=== PATIENT | female | born 1970 | race Two or more races ===

== ENCOUNTER 2024-10-11 07:30 | Inpatient (IN) | payer BC ==
[~2024-10-11] VITALS: Ht 154.9 cm; Wt 61.7 kg
[2024-10-11] MEDS ORDERED: MAGNESIUM HYDROXIDE 30 ML LIQUID UDC ONE (08:27)
[2024-10-11] MEDS: MAGNESIUM HYDROXIDE 30 ML LIQUID UDC PO ONE (08:29)
[2024-10-11 08:38] LABS: BASOPHILS # (AUTO) 0.1 K/UL (0.0-0.2); BASOPHILS % (AUTO) 0.3 % (0.0-2.0); HEMOGLOBIN 13.2 g/dL (10.9-14.3); LYMPHOCYTES # (AUTO) 0.7 K/uL (0.8-4.8); LYMPHOCYTES % (AUTO) 3.5 % (20.5-51.5); MEAN CORPUSCULAR HEMOGLOBIN 31.7 uug (24.7-32.8); MEAN CORPUSCULAR HGB CONC 35 g/dL (32.3-35.6); MEAN CORPUSCULAR VOLUME 90.9 fL (75.5-95.3); MONOCYTES % (AUTO) 4.8 % (0.0-11.0); NEUTROPHILS % (AUTO) 91.4 % (38.5-71.5); PLATELET COUNT (AUTO) 289 K/uL (179-408); RED BLOOD CELL COUNT(AUTO) 4.18 MIL/uL (3.63-4.92); RED CELL DISTRIBUTION WIDTH 12.4 % (12.3-17.7); WHITE BLOOD COUNT (AUTO) 20.8 K/uL (3.8-11.8)
[2024-10-11 08:40] LABS: DIFFERENTIAL COMMENT 1
[2024-10-11] MEDS ORDERED: MINERAL OIL FLEET ENEMA 133 ML BOTTLE RC ONE (08:46)
[2024-10-11 08:48] LABS: CALCIUM 9.6 mg/dL (8.5-10.1); CREATININE 1.1 mg/dL (0.6-1.3); POTASSIUM 4.1 mmol/L (3.5-5.1)
[2024-10-11 08:53] LABS: ALBUMIN 4.2 g/dL (3.4-5.0); BILIRUBIN,DIRECT 0.2 mg/dL (0.0-0.2); BILIRUBIN,TOTAL 0.9 mg/dL (0.2-1.0); TOTAL PROTEIN, SERUM 7.9 g/dL (6.4-8.2)
[2024-10-11] MEDS: MINERAL OIL FLEET ENEMA 133 ML BOTTLE RC ONE (09:20)
[2024-10-11] MEDS: IV NORMAL SALINE 1000 ML BAG IV ONE (09:58)
[2024-10-11] MEDS: IV NS 1000 ML 1,000 ML IV ONE (11:11)
[2024-10-11] MEDS ORDERED: MAGNESIUM SULFATE/D5W 300 ML ONE (11:43)
[2024-10-11] MEDS: MAGNESIUM SULFATE/D5W 100 ML IV SCH (11:57)
[2024-10-11 13:44] LABS: *BILIRUBIN,URIN NEGATIVE (NEGATIVE); *BLOOD, URINE 1+ (NEGATIVE); *CLARITY,URINE CLEAR (CLEAR); *COLOR,URINE YELLOW (YELLOW); *KETONES,URINE NEGATIVE (NEGATIVE); *PROTEIN,URINE TRACE (NEGATIVE); *UROBILINOGEN,URINE 0.2 E.U./dl (NORMAL); LEUKOCYTE ESTERASE ,URINE NEGATIVE (NEGATIVE); NITRITE, URINE NEGATIVE (NEGATIVE); UGLUCOSE NEGATIVE (NEGATIVE)
[2024-10-11 13:45] LABS: BACTERIA,URINE FEW /HPF (NONE SEEN); SQUAMOUS EPITHELIAL CELL,UR FEW /HPF (NONE SEEN); WBC,URINE 0-3 /HPF (0-3)
[2024-10-11] MEDS ORDERED: METRONIDAZOLE 500 MG/NS 100ML 100 ML IV ONE (14:53)
[2024-10-11] MEDS: METRONIDAZOLE 500 MG/NS 100 ML PIGGYBACK IV ONE (15:04)
[2024-10-11] MEDS: CIPROFLOXACIN IV 400 MG in PREMIXED 1 EACH IV SCH (16:05)
[2024-10-11] MEDS ORDERED: MAGNESIUM HYDROXIDE 30 ML LIQUID UDC PO PRN (17:45)
[2024-10-11] MEDS ORDERED: ACETAMINOPHEN 325 MG TABLET PO PRN (17:45)
[2024-10-11] MEDS: MAGNESIUM CITRATE 296 ML BOTTLE PO ONE (17:45)
[2024-10-11] MEDS ORDERED: ONDANSETRON 4 MG/2 ML VIAL IV PRN (17:45)
[2024-10-11] MEDS ORDERED: REMEDY ESSENTIAL ZINC PASTE 113 GM TP PRN (17:45)
[2024-10-11] MEDS: levoFLOXacin 500 MG/D5W 500 MG in PREMIXED 1 EACH IV SCH (21:00)
[2024-10-11] MEDS ORDERED: CIPROFLOXACIN IV 200 ML IV ONE (21:52)
[2024-10-11] MEDS: IV NS 1000 ML 1,000 ML IV PRN (21:57)
[2024-10-12 03:59] VITALS: BP 91/55; TEMP 99; O2SAT 97
[2024-10-12 06:44] LABS: BASOPHILS % (AUTO) 0.3 % (0.0-2.0); EOSINOPHILS # (AUTO) 0.3 K/uL (0.0-0.7); EOSINOPHILS % (AUTO) 2.4 % (0.0-7.0); HEMATOCRIT 27.6 % (31.2-41.9); HEMOGLOBIN 9.8 g/dL (10.9-14.3); LYMPHOCYTES # (AUTO) 1.5 K/uL (0.8-4.8); LYMPHOCYTES % (AUTO) 14.6 % (20.5-51.5); MEAN CORPUSCULAR HEMOGLOBIN 32.4 uug (24.7-32.8); MEAN CORPUSCULAR HGB CONC 36 g/dL (32.3-35.6); MEAN CORPUSCULAR VOLUME 91.3 fL (75.5-95.3); MONOCYTES # (AUTO) 0.8 K/uL (0.1-1.30); MONOCYTES % (AUTO) 7.9 % (0.0-11.0); NEUTROPHILS # (AUTO) 7.9 K/uL (1.8-8.9); NEUTROPHILS % (AUTO) 74.8 % (38.5-71.5); PLATELET COUNT (AUTO) 171 K/uL (179-408); RED BLOOD CELL COUNT(AUTO) 3.02 MIL/uL (3.63-4.92); RED CELL DISTRIBUTION WIDTH 12.5 % (12.3-17.7); WHITE BLOOD COUNT (AUTO) 10.6 K/uL (3.8-11.8)
[2024-10-12 06:56] LABS: CALCIUM 8.1 mg/dL (8.5-10.1); CREATININE 0.9 mg/dL (0.6-1.3); MAGNESIUM 2.2 mg/dL (1.8-2.4); PHOSPHOROUS 2.9 mg/dL (2.5-4.9); POTASSIUM 4.2 mmol/L (3.5-5.1)
[2024-10-12 06:57] LABS: DIFFERENTIAL COMMENT 1
[2024-10-12] MEDS ORDERED: NORT10CA PO (07:34)
[2024-10-12] MEDS ORDERED: GUAN1TAB PO (07:34)
[2024-10-12] MEDS ORDERED: GUAN3TAB PO (10:51)
[2024-10-12 11:52] VITALS: BP 93/46; TEMP 98.4; O2SAT 91
[2024-10-12 15:29] VITALS: BP 101/53; TEMP 98.4; O2SAT 99
[2024-10-12] MEDS: HYDROCORTISONE 2.5 % RECTAL CREAM 28.35 GM TUBE RC PRN (18:38)
[2024-10-12 19:30] VITALS: BP 104/60; TEMP 98; O2SAT 100
[2024-10-13] MEDS ORDERED: NORTRIPTYLINE HCL 10 MG CAPSULE PO SCH
[2024-10-13] MEDS ORDERED: INTUNIV 3 MG PO SCH (00:15)
[2024-10-13] MEDS: NORTRIPTYLINE 10 MG PO SCH (00:57)
[2024-10-13] MEDS: [UNRECOGNIZED DRUG - OTHER] PO SCH (00:57)
[2024-10-13] MEDS: GUANFACINE 3 MG PO SCH (00:58)
[2024-10-13] MEDS: [UNRECOGNIZED DRUG - OTHER] PO SCH (00:58)
[2024-10-13 06:00] VITALS: BP 95/59; TEMP 97.2; O2SAT 98
[2024-10-13 06:36] LABS: BASOPHILS % (AUTO) 0.4 % (0.0-2.0); EOSINOPHILS # (AUTO) 0.5 K/uL (0.0-0.7); EOSINOPHILS % (AUTO) 5.8 % (0.0-7.0); HEMATOCRIT 26.2 % (31.2-41.9); HEMOGLOBIN 9.1 g/dL (10.9-14.3); LYMPHOCYTES # (AUTO) 2.3 K/uL (0.8-4.8); LYMPHOCYTES % (AUTO) 27.7 % (20.5-51.5); MEAN CORPUSCULAR HGB CONC 35 g/dL (32.3-35.6); MEAN CORPUSCULAR VOLUME 92.2 fL (75.5-95.3); MONOCYTES # (AUTO) 0.6 K/uL (0.1-1.30); MONOCYTES % (AUTO) 6.6 % (0.0-11.0); NEUTROPHILS % (AUTO) 59.5 % (38.5-71.5); PLATELET COUNT (AUTO) 160 K/uL (179-408); RED BLOOD CELL COUNT(AUTO) 2.84 MIL/uL (3.63-4.92); RED CELL DISTRIBUTION WIDTH 12.5 % (12.3-17.7); WHITE BLOOD COUNT (AUTO) 8.4 K/uL (3.8-11.8)
[2024-10-13 06:48] LABS: DIFFERENTIAL COMMENT 1
[2024-10-13 06:52] LABS: CALCIUM 8.3 mg/dL (8.5-10.1); CREATININE 0.8 mg/dL (0.6-1.3); POTASSIUM 3.6 mmol/L (3.5-5.1)
[2024-10-13 11:14] VITALS: BP 101/62; TEMP 97.6; O2SAT 100
[2024-10-13] MEDS: SIMETHICONE 80 MG TAB.CHEW PO SCH (12:17)
[2024-10-13] MEDS: GOLYTELY 4000 ML BOTTLE PO ONE (14:41)
[2024-10-13] MEDS ORDERED: LEVO500T90 PO (14:57)
[2024-10-13] MEDS ORDERED: SIME80TA15 PO (14:57)
[2024-10-13] MEDS ORDERED: POLY17PO4 PO (14:57)
[2024-10-13] MEDS ORDERED: SENN8.6T19 PO (14:57)
[2024-10-13 15:21] VITALS: BP 101/58; TEMP 98.1; O2SAT 100
[2024-10-13] MEDS ORDERED: levoFLOXacin 500 MG TABLET PO SCH (21:00)
== END 2024-10-13 16:10 | disposition home or self-care (01) | DRG 392 ==
LOC: ER 07:30 → MEDSURG3 20:11
PROVIDERS: ADMIT Internal Medicine; ATTEND Internal Medicine
DX: K52.89 Other specified noninfective gastroenteritis and colitis (principal); A09 Infectious gastroenteritis and colitis, unspecified; E87.20 Acidosis, unspecified; K50.90 Crohn's disease, unspecified, without complications; E86.0 Dehydration; K59.00 Constipation, unspecified; F41.9 Anxiety disorder, unspecified; Z88.0 Allergy status to penicillin; Z88.2 Allergy status to sulfonamides; S82.141D Displaced bicondylar fracture of right tibia, subsequent encounter for closed fracture with routine healing; X58.XXXD Exposure to other specified factors, subsequent encounter; Z79.899 Other long term (current) drug therapy
CPT/HCPCS: 36415; 74018; 83605; 83735; 84100; 85025; 87040; G0378; J0744; J1956; J3475; J3490; J7040